=== PATIENT | female | born 1960 | race Caucasian/White ===

== ENCOUNTER 2025-06-14 18:23 | Emergency (ER) | payer BC, OTHER ==
[2025-06-14] MEDS ORDERED: Ketorolac Tromethamine 30 MG (1 mL) VIAL ONE (18:58)
== END 2025-06-14 20:27 | disposition home or self-care (01) ==
LOC: NAV ERS 18:23
DX: M54.50 Low back pain, unspecified (principal)
CPT/HCPCS: 96374; 96375; J1885; J3360